=== PATIENT | female | born 1940 | race Hispanic/Latino ===

== ENCOUNTER 2022-04-24 06:36 | Day surgery (SDC) | payer MEDICARE ==
[2022-04-24] MEDS ORDERED: ASPIRIN EC 325 MG TAB PO SCH (07:30)
[2022-04-24 07:31] LABS: Basophils # (Auto) 0.1 K/mm3 (0.0-0.1); Basophils % (Auto) 0.6 % (0.0-1.8); Eosinophils # (Auto) 0.3 K/mm3 (0.0-0.4); Eosinophils % (Auto) 3.1 % (0.0-4.3); Hematocrit 40.8 % (30.3-42.9); Lymphocytes # (Auto) 2.1 K/mm3 (1.2-5.4); Mean Corpuscular HGB Conc 34 % (30-34); Mean Corpuscular Volume 96 fl (79-97); Monocytes % (Auto) 8.9 % (0.0-7.3); Platelet Count 195 K/mm3 (140-440); Red Blood Count 4.23 M/mm3 (3.65-5.03); Red Cell Distribution Width 14.2 % (13.2-15.2)
[2022-04-24 07:42] LABS: INR 0.9 (0.87-1.13)
[2022-04-24 07:43] LABS: Partial Thromboplastin Time 27.8 Sec. (24.2-36.6)
[2022-04-24] MEDS ORDERED: HEPARIN/NS 5000 UNIT/500ML 1,000 ML IR ONE (07:49)
[2022-04-24] MEDS ORDERED: NITROGLYCERIN SYRINGE 3 ML ONE (07:50)
[2022-04-24] MEDS: fentaNYL 100 MCG/2 ML INJ ONE ×2 (07:56→09:46)
[2022-04-24] MEDS: MIDAZOLAM 2 MG/2 ML INJ ONE ×2 (07:56→09:46)
[2022-04-24] MEDS: HEPARIN 10,000 UNITS/10 ML VIAL ONE ×2 (07:57→09:52)
[2022-04-24] MEDS: LIDOCAINE (2%) 20 MG/1 ML VIAL 50 ML MDV INFILTRATI ONE ×3 (07:57→10:08)
[2022-04-24] MEDS: VERAPAMIL 5 MG/2 ML INJ ONE ×2 (07:57→09:52)
[2022-04-24] MEDS ORDERED: SODIUM CHLORIDE 0.9% 500 ML 500 ML IV SCH (08:00)
[2022-04-24 08:12] LABS: Calcium 9.7 mg/dL (8.4-10.2)
[2022-04-24] MEDS ORDERED: MIDAZOLAM 5 MG/5 ML INJ MDV IV ONE (08:34)
[2022-04-24] MEDS ORDERED: VERAPAMIL 5 MG/2 ML INJ ONE (08:35)
[2022-04-24] MEDS ORDERED: DEXTROSE 50% IN WATER (25GM) 50 ML SYRINGE IV ONE (08:54)
[2022-04-24] MEDS ORDERED: DEXTROSE 50% IN WATER (25GM) 50 ML VIAL IV ONE (09:26)
[2022-04-24] MEDS ORDERED: HYDROcodone/ACETAMINOPHEN 5-325 MG TAB PO PRN (10:31)
[2022-04-24] MEDS ORDERED: traMADol 50 MG TAB PO PRN (10:31)
--- NOTE | 2022-04-24 10:54 | Short Stay Summary ---
Short Stay Documentation Date of service: 04/24/22 - History H&P: obtained from office - Allergies and Medications Current Medications: Allergies No Known Allergies Allergy (Unverified 04/24/22 07:04) Home Medications Medication Instructions Recorded Confirmed Last Taken Type AtorvaSTATin [Lipitor] 40 mg PO QHS 04/24/22 04/24/22 04/23/22 History Benazepril HCl [Lotensin] 40 mg PO DAILY 04/24/22 04/24/22 04/23/22 History Chlorthalidone [Thalitone] 25 mg PO QDAY 04/24/22 04/24/22 04/23/22 History Cholecalciferol Vit D3 [Vitamin D3 5,000 unit PO QDAY 04/24/22 04/24/22 04/16/22 History 1,000 UNIT TAB] Coq10 100 mg PO DAILY 04/24/22 04/24/22 04/23/22 History Empagliflozin [Jardiance] 25 mg PO DAILY 04/24/22 04/24/22 04/23/22 History Gabapentin 2 tab PO BID 04/24/22 04/24/22 04/23/22 History Insulin Glargine,Hum.rec.anlog 44 unit SQ QHS 04/24/22 04/24/22 04/23/22 History [Lantus Solostar] Metoprolol SUCCINATE ER TAB 50 mg PO DAILY 04/24/22 04/24/22 04/23/22 History Omega3,5,6,7,9 No.1/Winifrede Oil 1 each PO DAILY 04/24/22 04/24/22 04/23/22 History [Complete [place] Softgel] amLODIPine [Norvasc] 10 mg PO DAILY 04/24/22 04/24/22 04/23/22 History glipiZIDE [Glucotrol] 10 mg PO BID 04/24/22 04/24/22 04/23/22 History metFORMIN [Glucophage] 500 mg PO QDAY 04/24/22 04/24/22 04/23/22 History Active Medications Hydrocodone Bitart/Acetaminophen (Hydrocodone/Acetaminophen 5-325 Mg Tab) 1 each PO Q4H PRN PRN Reason: Pain, Moderate (4-6) Aspirin (Aspirin Ec 325 Mg Tab) 325 mg PO ONCE@0730 CRISTA Stop: 04/24/22 17:00 Last Admin: 04/24/22 09:25 Dose: Not Given Sodium Chloride (Nacl 0.9% 500 Ml) 500 mls @ 50 mls/hr IV DIRECT CRISTA Stop: 04/24/22 17:59 Last Admin: 04/24/22 07:58 Dose: 200 mls Tramadol HCl (Tramadol 50 Mg Tab) 50 mg PO Q4H PRN PRN Reason: Pain, Mild (1-3) - Physical exam Integumentary: other (Dressing clean dry and intact no bleeding or hematoma) - Brief post op/procedure progress note Date of procedure: 04/24/22 Pre-op diagnosis: Aortic stenosis Post-op diagnosis: same Anesthesia: local Estimated blood loss: minimal - Hospital course Hospital course: Patient presents today for cardiac cath to evaluate for restenosis. Patient found to have moderate aortic stenosis with mild CAD. Patient to be discharged home and follow-up in the office as an outpatient - Disposition Condition at discharge: Good Disposition: 01 HOME / SELF CARE / HOMELESS - Discharge Diagnoses (1) Aortic stenosis Status: Acute (2) CAD (coronary artery disease) Status: Acute (3) HTN (hypertension) Status: Acute (4) Diabetes Status: Acute Short Stay Discharge Plan Activity: advance as tolerated Diet: low fat, low cholesterol, low salt Wound: keep clean and dry, per your surgeon's advice Follow up with: JAMES MCCOLLUM MD [Primary Care Provider] - 7 Days SOILA NORTON MD [Staff Physician] - 05/19/22 10:50 am (Patient has a follow up on 05/19/2022 at 10:50 AM in our [place] location. )
--- NOTE | 2022-04-24 11:34 | Cardiac Catherization Report ---
DATE OF SERVICE: 04/24/2022 LEFT HEART CATHETERIZATION AND RIGHT HEART CATHETERIZATION DATE OF PROCEDURE: 04/24/2022 INDICATIONS: This is an 81-year-old female, being followed by Dr. Julian on a regular basis was noted to have moderate aortic stenosis. The patient had an echocardiogram performed on 12/05/2021 which showed ejection fraction of 60-65% and a moderately calcified aortic valve was noted with a mean gradient of 36.6 mmHg and peak gradient of 61.37 mmHg. Valve area was found to be 1 square cm. The patient is having symptoms of some leg edema and tightness. The patient has underlying diabetes mellitus, hypertension, and hyperlipidemia. The patient is scheduled for diagnostic cardiac catheterization for evaluation of moderate aortic stenosis. The patient is aware of the procedure, potential complications, and alternatives of therapy available. The procedure was explained to the patient and her . They understand and agreeable to proceed with the same. DESCRIPTION OF PROCEDURE: The patient was brought to the catheterization laboratory, was evaluated for moderate sedation and was felt to be an appropriate candidate for moderate sedation. The patient received IV Versed and fentanyl. Subsequently, local anesthesia was given in the right wrist area. Right radial artery access was obtained using 21-gauge arterial puncture needle. A 5-Slovak slender sheath was introduced. A 5-Slovak multipurpose catheter was used to obtain the angiograms of the right coronary artery and a JL3.5 diagnostic catheter was used for obtaining the left coronary angiography. Subsequently, a 5-Slovak multipurpose catheter was advanced into the left ventricle, left ventriculogram was performed using hand injection. Subsequently, a left radial artery access was obtained after giving local anesthesia. A 4-Slovak vertebral catheter was advanced into the ascending aorta. Using pressure monitors, simultaneous pressures of the left ventricle and ascending aorta were obtained. After obtaining the simultaneous pressures, right heart catheterization was performed using a 6-Slovak balloon-tipped [place]aira catheter and catheter was advanced under fluoroscopy into the right atrium, right ventricle, and pulmonary artery pressure and the wedge pressure position. After obtaining the pressures, mixed venous oxygen saturation was obtained from the pulmonary artery and arterial oxygen saturations were obtained using the catheter from the left ventricle. After obtaining the oxygen saturations and obtaining the pressures, all the catheters were removed. The patient was transferred to the room in stable condition. The patient tolerated the procedure well with no untoward complications. At the end of the procedure, the patient is breathing normally, communicating normally, no focal deficits noted. The patient's moderate sedation started at 9:44 a.m. and ended at 10:26 a.m. Following findings were noted. The patient's cardiac output by Jean Pierre method is 5.62 liters per minute. Left ventricular pressure is 159/15, aortic pressure is 108/40, aortic gradient mean was 37.4 mmHg, pulmonary artery pressure is 46/12 mmHg. Pulmonary capillary wedge pressure is mean of 11 mmHg. Right ventricular pressure is 46/7 and right atrial pressure is 10/7. Pulmonary artery oxygen saturation is 64% and aortic saturation is 88%. Gtca-pj-meaj aortic valve gradient was 40 mmHg, mean gradient was 37.4 mmHg, valve area of 1.07 square cm with index of 0.55. The patient's cardiac output is 5.62 liters per minute with cardiac index of 2.91 liters. Coronary angiography showed right coronary artery arising normally from right coronary cusp, dominant vessel, 30% concentric lesion noted at the ostium. Rest of the RCA shows mild smooth irregularities. Left coronary artery shows mild calcifications. Left main showed very mild disease. LAD shows 30% eccentric mid lesion after a large diagonal branch. Otherwise, the LAD and its diagonal branches show mild smooth irregularities. Circumflex artery is represented by a large marginal branch shows mild smooth irregularities. Fluoroscopy did not show very mild aortic valve calcification. FINAL IMPRESSION: Moderate aortic stenosis with mean gradient of 37.4 and valve area of 1.07 square cm. Mild coronary artery disease, normal left ventricular systolic function noted. Left ventriculogram was performed using multipurpose catheter and hand injection. This showed normal-sized left ventricle with normal contractility. End-diastolic pressure is in the normal range. Mitral regurgitation was not evaluated because of limited amount of dye injected. The patient was transferred to the room in stable condition. Findings were explained to the patient. We discussed with Dr. Julian about further management. The findings noted on the cardiac catheterization are corresponding to the findings noted on the echocardiogram. TID: [id number] RECEIPT: [id number] GREG/SANG
--- NOTE | 2022-04-24 14:12 | Electrocardiograph Report ---
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
[2022-04-24 15:22] VITALS: BP 144/65
== END 2022-04-24 06:37 | disposition home or self-care (01) ==
LOC: CATHLABREC 06:36
PROVIDERS: ATTEND Internal Medicine
DX: I35.0 Nonrheumatic aortic (valve) stenosis (principal); I25.10 Atherosclerotic heart disease of native coronary artery without angina pectoris; I10 Essential (primary) hypertension; E11.9 Type 2 diabetes mellitus without complications; E78.2 Mixed hyperlipidemia; Z79.899 Other long term (current) drug therapy; Z79.4 Long term (current) use of insulin; Z98.890 Other specified postprocedural states
CPT/HCPCS: 36415; 80048; 82962; 85025; 85610; 85730; 93005; 93460; 99156; 99157; C1894; J1644; J1815; J2250; J3010; J3490; J7040; Q9967